=== PATIENT | female | born 1990 | race Asian ===

== ENCOUNTER 2023-04-13 20:57 | Emergency (ER) | payer OTHER ==
[~2023-04-13] VITALS: Ht 162.6 cm; Wt 49.9 kg
[2023-04-13 21:10] VITALS: BP_SYST 105; PULSE 102; RESP 18; TEMP 98.3; O2SAT 97
[2023-04-13] MEDS ORDERED: DIAZEPAM 5 MG TABLET (VALIUM) PO ONE (22:30)
[2023-04-13] MEDS ORDERED: MORPHINE 4 MG INJ. 4 MG/ML VIAL IVP ONE (22:30)
[2023-04-13] MEDS ORDERED: KETOROLAC TROMETHAMINE 30 MG VIAL IVP ONE (22:30)
[2023-04-13] MEDS ORDERED: [UNRECOGNIZED DRUG - CODE] PO (23:07)
[2023-04-13] MEDS ORDERED: ACET-2634 PO (23:07)
[2023-04-13] MEDS ORDERED: IBUP-1969 PO (23:07)
[2023-04-13 23:21] VITALS: BP_SYST 108; PULSE 86; RESP 20; TEMP 97.7; O2SAT 98
== END 2023-04-13 23:21 | disposition home or self-care (01) ==
LOC: SED 20:57
DX: M43.6 Torticollis (principal); Z79.899 Other long term (current) drug therapy
CPT/HCPCS: 99284; 96374; 96375; 81025; J1885; J2270